=== PATIENT | female | born 1940 | race Caucasian/White ===

== ENCOUNTER → 2016-08-24 | Outpatient (CLI) | payer MEDICARE, OTHER ==
[2016-08-24 10:20] LABS: CHOLESTEROL 181.25 mg/dL (0-200); Direct HDL 62 mg/dL (>40); TRIGLYCERIDES 90 mg/dL (<150)
[2016-08-24 10:30] LABS: DIRECT LDL 87 mg/dL (<100)
== END ==
LOC: OD 08:42
PROVIDERS: ATTEND Internal Medicine Cardiovascular Disease
DX: E78.00 Pure hypercholesterolemia, unspecified (principal)
CPT/HCPCS: 36415; 80061

== ENCOUNTER 2016-10-07 07:51 | Day surgery (SDC) | payer MEDICARE, OTHER ==
[~2016-10-07 07:51] MED LIST: DIPHENHYDRAMINE HCL 50 MG/ML VIAL ONE; EPINEPHRINE INJ 1 MG/10 ML DISP.SYRIN ONE; FENTANYL CITRATE INJ/PF 100 MCG/2 ML AMPUL ONE; FLUMAZENIL INJ 0.5 MG/5 ML VIAL IV ONE; GLUCAGON,HUMAN RECOMB 1 MG INJ ONE; NALOXONE HCL INJ/PF 0.4 MG/1 ML SDV ONE; ONDANSETRON HCL INJ/PF 4 MG/2 ML SDV ONE
[2016-10-07] MEDS: MIDAZOLAM 2 MG/2 ML INJ ONE ×4 (08:45→09:05)
[2016-10-07] MEDS: FENTANYL CITRATE INJ/PF 100 MCG/2 ML AMPUL ONE ×2 (08:47→08:52)
--- NOTE | 2016-10-07 09:35 | Operative Report ---
Operative Report DATE OF SURGERY: 10/07/16 Operative Report: The risks, benefits and alternatives of the procedure including risks of bleeding, perforation requiring surgery are explained to the patient detail and informed consent is obtained. The patient is placed in a left, lateral decubital position. Timeout is called. Conscious sedation is administered. An Olympus videoscope was inserted into the patient's rectum. The scope was then gradually advanced all the way to the cecum. The cecum as identified by the usual anatomical landmarks including the ileocecal valve as well as the appendiceal office. Photodocumentation is obtained. The scope was then sequentially pulled back via the rest segments of the colon including the ascending colon, hepatic flexure, transverse colon, splenic flexure, descending colon and finally into the rectosigmoid portions of the colon. Retroflexion maneuvers performed. Upper endoscopy is similarly performed. The Olympus videoscope this inserted into the patient's mouth and hypopharynx. The esophagus is identified intubated and insufflated. The scope was then gradually advanced all was was a distal EG junction. The lesser curvature is done followed down to the antrum. The first and second portions of the duodenum identified intubated. The scope is then brought back out into the antral cavity area retroflexion maneuver is performed. Following this the scope is slowly withdrawn. PREOPERATIVE DIAGNOSIS: Epigastric pain, abdominal discomfort. Personal history of polyps. POSTOPERATIVE DIAGNOSIS: Diverticulosis. Internal hemorrhoids. Mild nonspecific colitis status post biopsy. Hiatal hernia. Gastritis. Benign fundic gland polyps OPERATION: Colonoscopy with biopsy. EGD with biopsy SURGEON: WILFRIDO DE JESUS ANESTHESIA: Moderate Sedation - 6 mg of Versed, 100 g of fentanyl. Conscious sedation monitoring time 30 minutes. TISSUE REMOVED OR ALTERED: Colonic mucosal specimens obtained. Gastric mucosal specimens obtained COMPLICATIONS: None. ESTIMATED BLOOD LOSS: none. INTRAOPERATIVE FINDINGS: As described above. PROCEDURE: Patient tolerated the procedure well. No immediate postprocedure complications are noted. Patient is discharged in good condition. Discharge date 10/07/2016. Discharge diet: Regular. Discharge activity: Regular. 2-3 week follow-up to discuss findings. Patient is instructed to call the office or proceed to the emergency room should there be any further problems or questions. We'll await on biopsies. Surveillance colonoscopy in 5 years
[2016-10-07 11:08] VITALS: BP 109/59
== END 2016-10-07 10:30 | disposition home or self-care (01) ==
LOC: END 07:51
PROVIDERS: ATTEND Internal Medicine Gastroenterology
PROC: 0DB68ZX Excision of Stomach, Via Natural or Artificial Opening Endoscopic, Diagnostic (ICD-10-PCS; principal; 2016-10-07 08:30)
PROC: 0DBE8ZX Excision of Large Intestine, Via Natural or Artificial Opening Endoscopic, Diagnostic (ICD-10-PCS; 2016-10-07 08:30)
DX: K57.30 Diverticulosis of large intestine without perforation or abscess without bleeding (principal); K64.8 Other hemorrhoids; K52.9 Noninfective gastroenteritis and colitis, unspecified; K44.9 Diaphragmatic hernia without obstruction or gangrene; K29.50 Unspecified chronic gastritis without bleeding; Z86.010 Personal history of colon polyps; I10 Essential (primary) hypertension; E78.5 Hyperlipidemia, unspecified; Z79.899 Other long term (current) drug therapy; Z88.1 Allergy status to other antibiotic agents; Z88.8 Allergy status to other drugs, medicaments and biological substances
CPT/HCPCS: 43239; 45380; 88305 ×2; J2250; J3010; J0171; J1200; J1610; J2310; J2405; J3490

== ENCOUNTER → 2016-10-26 | Outpatient (CLI) | payer MEDICARE, OTHER ==
[2016-10-26 11:37] LABS: ANION GAP 10 (5-19); BLOOD UREA NITROGEN 14 mg/dL (7-20); CALCIUM 9.6 mg/dL (8.4-10.2); CARBON DIOXIDE 27 mmol/L (22-30); CHLORIDE 103 mmol/L (98-107); CHOLESTEROL 134.93 mg/dL (0-200); CREATININE RESULT 0.62 mg/dL (0.52-1.25); Direct HDL 54 mg/dL (>40); GLUCOSE 91 mg/dL (75-110); MAGNESIUM 1.9 mg/dL (1.6-2.3); POTASSIUM 4.1 mmol/L (3.6-5.0); SODIUM 140.3 mmol/L (137-145); TRIGLYCERIDES 106 mg/dL (<150)
[2016-10-26 11:48] LABS: DIRECT LDL 50 mg/dL (<100)
== END ==
LOC: OD 10:05
PROVIDERS: ATTEND Internal Medicine Cardiovascular Disease
DX: E78.00 Pure hypercholesterolemia, unspecified (principal); I49.49 Other premature depolarization
CPT/HCPCS: 36415; 80048; 80061; 83735

== ENCOUNTER → 2017-02-09 | Outpatient (CLI) | payer MEDICARE, OTHER | LOC: OD 14:45 | PROVIDERS: ATTEND Internal Medicine Cardiovascular Disease | DX: H35.60 Retinal hemorrhage, unspecified eye (principal); E83.41 Hypermagnesemia; I49.3 Ventricular premature depolarization; I48.91 Unspecified atrial fibrillation | CPT/HCPCS: 36415; 83036; 83735; 84443 ==

== ENCOUNTER 2017-06-22 11:25 | Day surgery (SDC) | payer MEDICARE, OTHER ==
[~2017-06-22 11:25] MED LIST changes: -FLUMAZENIL INJ 0.5 MG/5 ML VIAL IV ONE; +FLUMAZENIL INJ 0.5 MG/5 ML VIAL ONE
[2017-06-22] MEDS: MIDAZOLAM 2 MG/2 ML INJ ONE ×2 (12:15→12:19)
[2017-06-22 13:30] VITALS: BP 118/65
--- NOTE | 2017-06-22 14:55 | Operative Report ---
Operative Report DATE OF SURGERY: 06/22/17 Operative Report: The risks benefits and alternatives of the procedure explained to the patient in detail and informed consent is obtained.A GIF Olympus video scope was inserted into the patient's mouth and hypopharynx, the esophagus is identified intubated and insufflated, the scope was then advanced through the esophagus stomach and duodenum, retroflexion maneuver is done, the esophagus stomach and first and second portions of the duodenum examined PREOPERATIVE DIAGNOSIS: Epigastric pain POSTOPERATIVE DIAGNOSIS: Gastritis status post biopsy rule out Helicobacter pylori. Gastric polyp likely a fundic gland polyp. Hiatal hernia OPERATION: EGD with biopsy SURGEON: WILFRIDO DE JESUS ANESTHESIA: Moderate Sedation - 4 mg of Versed, 50 mcg of fentanyl. Conscious sedation monitoring time 30 minutes. TISSUE REMOVED OR ALTERED: As noted above. COMPLICATIONS: None. ESTIMATED BLOOD LOSS: None. INTRAOPERATIVE FINDINGS: As noted above. PROCEDURE: Patient tolerated procedure well. No immediate postprocedure complications are noted. Patient discharged in good condition. Discharge date 06/22/2017. Discharge diet: Regular. Discharge activity: Regular. 2-3 week follow-up to discuss findings. Patient is instructed to call the office or proceed to the emergency room should there be any further problems or questions. We will wait on pathology.
== END 2017-06-22 13:33 | disposition home or self-care (01) ==
LOC: END 11:25
PROVIDERS: ATTEND Internal Medicine Gastroenterology
PROC: 0DB68ZX Excision of Stomach, Via Natural or Artificial Opening Endoscopic, Diagnostic (ICD-10-PCS; principal; 2017-06-22 12:00)
DX: K31.7 Polyp of stomach and duodenum (principal); K44.9 Diaphragmatic hernia without obstruction or gangrene; E78.5 Hyperlipidemia, unspecified; I10 Essential (primary) hypertension; Z87.891 Personal history of nicotine dependence; Z79.899 Other long term (current) drug therapy
CPT/HCPCS: 43239; 88342 ×2; 88305 ×2; J2250; J3010; J0171; J1200; J1610; J2310; J2405; J3490

== ENCOUNTER → 2017-12-18 | Outpatient (CLI) | payer MEDICARE, OTHER ==
[2017-12-18 11:32] LABS: ANION GAP 11 (5-19); BLOOD UREA NITROGEN 15 mg/dL (7-20); CALCIUM 9.2 mg/dL (8.4-10.2); CARBON DIOXIDE 27 mmol/L (22-30); CHLORIDE 105 mmol/L (98-107); GLUCOSE 94 mg/dL (75-110); POTASSIUM 4.3 mmol/L (3.6-5.0); SODIUM 142.9 mmol/L (137-145)
== END ==
LOC: OD 10:05
PROVIDERS: ATTEND Internal Medicine Cardiovascular Disease
DX: I49.49 Other premature depolarization (principal)
CPT/HCPCS: 36415; 80048; 83735

== ENCOUNTER → 2018-04-05 | Outpatient (CLI) | payer MEDICARE, OTHER ==
[2018-04-05 10:58] LABS: ALANINE AMINOTRANSFERASE 26 U/L (9-52); ALBUMIN 3.6 g/dL (3.5-5.0); ALKALINE PHOSPHATASE 78 U/L (38-126); ASPARTATE AMINO TRANSFERASE 30 U/L (14-36); BILIRUBIN,DIRECT 0.1 mg/dL (0.0-0.4); BILIRUBIN,TOTAL 0.9 mg/dL (0.2-1.3); CHOLESTEROL 135.22 mg/dL (0-200); TOTAL PROTEIN 6.2 g/dL (6.3-8.2); TRIGLYCERIDES 100 mg/dL (<150)
[2018-04-05 11:04] LABS: DIRECT LDL 67 mg/dL (<100)
== END ==
LOC: OD 09:55
PROVIDERS: ATTEND Internal Medicine Cardiovascular Disease
DX: E78.00 Pure hypercholesterolemia, unspecified (principal); Z79.899 Other long term (current) drug therapy
CPT/HCPCS: 36415; 80061; 80076

== ENCOUNTER → 2018-10-16 | Outpatient (CLI) | payer MEDICARE, OTHER ==
[2018-10-16 10:52] LABS: ALANINE AMINOTRANSFERASE 31 U/L (9-52); ALBUMIN 3.4 g/dL (3.5-5.0); ALKALINE PHOSPHATASE 65 U/L (38-126); ANION GAP 7 (5-19); ASPARTATE AMINO TRANSFERASE 27 U/L (14-36); BILIRUBIN,DIRECT 0.2 mg/dL (0.0-0.4); BILIRUBIN,TOTAL 0.7 mg/dL (0.2-1.3); BLOOD UREA NITROGEN 17 mg/dL (7-20); CALCIUM 9.4 mg/dL (8.4-10.2); CARBON DIOXIDE 28 mmol/L (22-30); CHLORIDE 104 mmol/L (98-107); GLUCOSE 84 mg/dL (75-110); POTASSIUM 3.9 mmol/L (3.6-5.0); SODIUM 139.4 mmol/L (137-145); TOTAL PROTEIN 5.9 g/dL (6.3-8.2); TRIGLYCERIDES 64 mg/dL (<150)
[2018-10-16 11:03] LABS: DIRECT LDL 49 mg/dL (<100)
== END ==
LOC: OD 09:45
PROVIDERS: ATTEND Internal Medicine Cardiovascular Disease
DX: E78.00 Pure hypercholesterolemia, unspecified (principal); I10 Essential (primary) hypertension; I48.91 Unspecified atrial fibrillation; Z79.899 Other long term (current) drug therapy
CPT/HCPCS: 36415; 80048; 80061; 80076; 83735

== ENCOUNTER → 2019-03-12 | Outpatient (CLI) | payer MEDICARE, OTHER ==
[2019-03-12 11:36] LABS: ALBUMIN 3.7 g/dL (3.5-5.0); ALKALINE PHOSPHATASE 72 U/L (38-126); ANION GAP 8 (5-19); ASPARTATE AMINO TRANSFERASE 31 U/L (14-36); BILIRUBIN,DIRECT 0.2 mg/dL (0.0-0.4); BILIRUBIN,TOTAL 0.8 mg/dL (0.2-1.3); BLOOD UREA NITROGEN 14 mg/dL (7-20); CALCIUM 9.8 mg/dL (8.4-10.2); CARBON DIOXIDE 28 mmol/L (22-30); CHLORIDE 101 mmol/L (98-107); CHOLESTEROL 138.68 mg/dL (0-200); GLUCOSE 91 mg/dL (75-110); POTASSIUM 4.2 mmol/L (3.6-5.0); TOTAL PROTEIN 6.5 g/dL (6.3-8.2); TRIGLYCERIDES 56 mg/dL (<150)
[2019-03-12 11:49] LABS: DIRECT LDL 55 mg/dL (<100)
== END ==
LOC: OD 09:58
PROVIDERS: ATTEND Physician Assistant
DX: E78.00 Pure hypercholesterolemia, unspecified (principal); I10 Essential (primary) hypertension; I48.91 Unspecified atrial fibrillation; Z79.899 Other long term (current) drug therapy
CPT/HCPCS: 36415; 80048; 80061; 80076; 83735

== ENCOUNTER → 2019-10-10 | Outpatient (CLI) | payer MEDICARE, OTHER ==
[2019-10-10 10:01] LABS: HEMATOCRIT 37.9 % (36.0-47.0); HEMOGLOBIN 13.8 g/dL (12.0-15.5); MEAN CORPUSCULAR HEMOGLOBIN 33.7 pg (27.0-33.4); MEAN CORPUSCULAR HGB CONC 36.4 g/dL (32.0-36.0); MEAN CORPUSCULAR VOLUME 93 fl (80-97); PLATELET COUNT 349 10^3/uL (150-450); RED BLOOD COUNT 4.09 10^6/uL (3.72-5.28); RED CELL DISTRIBUTION WIDTH 13.4 % (11.5-14.0); WHITE BLOOD COUNT 9.3 10^3/uL (4.0-10.5)
[2019-10-10 10:23] LABS: ALBUMIN 3.7 g/dL (3.5-5.0); ALKALINE PHOSPHATASE 50 U/L (38-126); ANION GAP 7 (5-19); ASPARTATE AMINO TRANSFERASE 32 U/L (14-36); BILIRUBIN,TOTAL 0.9 mg/dL (0.2-1.3); BLOOD UREA NITROGEN 18 mg/dL (7-20); CALCIUM 9.4 mg/dL (8.4-10.2); CARBON DIOXIDE 28 mmol/L (22-30); CHLORIDE 101 mmol/L (98-107); CHOLESTEROL 138.19 mg/dL (0-200); GLUCOSE 80 mg/dL (75-110); POTASSIUM 4.2 mmol/L (3.6-5.0); TOTAL PROTEIN 6.1 g/dL (6.3-8.2); TRIGLYCERIDES 62 mg/dL (<150)
[2019-10-10 10:34] LABS: DIRECT LDL 49 mg/dL (<100)
== END ==
LOC: OD 09:05
PROVIDERS: ATTEND Physician Assistant
DX: E78.00 Pure hypercholesterolemia, unspecified (principal); I10 Essential (primary) hypertension; I48.91 Unspecified atrial fibrillation; Z79.899 Other long term (current) drug therapy
CPT/HCPCS: 36415; 80048; 80061; 80076; 83735; 84443; 85027

== ENCOUNTER → 2020-02-27 | Outpatient (CLI) | payer MEDICARE, OTHER ==
[2020-02-27 11:13] LABS: ALBUMIN 3.5 g/dL (3.5-5.0); ALKALINE PHOSPHATASE 67 U/L (38-126); ASPARTATE AMINO TRANSFERASE 31 U/L (14-36); BILIRUBIN,DIRECT 0.2 mg/dL (0.0-0.4); BILIRUBIN,TOTAL 0.9 mg/dL (0.2-1.3); BLOOD UREA NITROGEN 16 mg/dL (7-20); CALCIUM 9.4 mg/dL (8.4-10.2); CARBON DIOXIDE 28 mmol/L (22-30); CHOLESTEROL 133.12 mg/dL (0-200); GLUCOSE 89 mg/dL (75-110); POTASSIUM 4.2 mmol/L (3.6-5.0); TOTAL PROTEIN 5.8 g/dL (6.3-8.2); TRIGLYCERIDES 71 mg/dL (<150)
[2020-02-27 11:15] LABS: ANION GAP 8 (5-19); CHLORIDE 104 mmol/L (98-107)
[2020-02-27 11:24] LABS: DIRECT LDL 38 mg/dL (<100)
== END ==
LOC: OD 09:29
PROVIDERS: ATTEND Physician Assistant
DX: E78.00 Pure hypercholesterolemia, unspecified (principal); I10 Essential (primary) hypertension; Z79.899 Other long term (current) drug therapy
CPT/HCPCS: 36415; 80048; 80061; 80076